=== PATIENT | female | born 1975 | race Native Hawaiian/Other Pacific Islander ===

== ENCOUNTER 2016-03-23 14:26 | Outpatient (CLI) | payer BC ==
[~2016-03-23 14:26] MED LIST: ACET5TAB36 PO; LEVO0.117 PO; PAXIL10 MG PO; SIMV20TA2 PO
== END 2016-03-23 15:26 | disposition home or self-care (01) ==
LOC: RAD 14:26
DX: M79.89 Other specified soft tissue disorders (principal); M17.11 Unilateral primary osteoarthritis, right knee